=== PATIENT | male | born 1995 | race Caucasian/White ===

== ENCOUNTER 2017-07-21 11:46 | Emergency (ER) | payer BC ==
[~2017-07-21] VITALS: Ht 177.8 cm; Wt 80.0 kg
[2017-07-21 12:16] VITALS: BP 149/77
--- NOTE | 2017-07-21 12:25 | NUR ---
Patient ambulated to bed 08.
--- NOTE | 2017-07-21 13:07 | NUR ---
Note undone in EDM - 07/21/17 at 1312 by [facility] PATIENT PRESENTS TO ED WITH C/O DIZZINESS WITH FEVER OR >3 HRS WITHOUT EATING ;SEVERE NAUSEA X 2 WKS;DENIES POLYDIPSIA/POLYURIA/POLYPHAGIA, DENIES DIARRHEA--DENIES WEIGHT LOSS;PT FELL ONTO LEFT BUTTOCK C/O PAIN;DENIES ETOH ABUSE/ ADMITS ABUSING MARIJUANA DAILY;SKIN IS PINK/WARM/DRY; AAOX4 WITH EVEN AND STEADY GAIT; LUNGS CLEAR BL; HR EVEN AND REGULAR; PT DENIES ANY FEVER, CP, SOB, OR COUGH AT THIS TIME; PATIENT STATES PAIN OF 8/10 AT THIS TIME;PATIENT POSITIONED FOR COMFORT; HOB ELEVATED; BEDRAILS UP X2; BED DOWN. ER MD MADE AWARE OF PT STATUS.
--- NOTE | 2017-07-21 13:07 | NUR ---
PATIENT PRESENTS TO ED WITH C/O DIZZINESS WITH FEVER OR >3 HRS WITHOUT EATING ;SEVERE NAUSEA X 2 WKS;DENIES POLYDIPSIA/POLYURIA/POLYPHAGIA, DENIES DIARRHEA--DENIES WEIGHT LOSS;PT FELL ONTO LEFT BUTTOCK C/O PAIN;DENIES ETOH ABUSE/ ADMITS ABUSING MARIJUANA DAILY;SKIN IS PINK/WARM/DRY; AAOX4 WITH EVEN AND STEADY GAIT; LUNGS CLEAR BL; HR EVEN AND REGULAR; PT DENIES ANY CP, SOB, OR COUGH AT THIS TIME; PATIENT STATES PAIN OF 8/10 AT THIS TIME;PATIENT POSITIONED FOR COMFORT; HOB ELEVATED; BEDRAILS UP X2; BED DOWN. ER MD MADE AWARE OF PT STATUS.
--- NOTE | 2017-07-21 13:31 | NUR ---
DISPO AND MEDICAL DECISION MAKING, DC HOME WITH INSTRUCTIONS AND PRESCRIPTIONS, UNDERSTOOD BY PATIENT AND MOTHER WELL, VSWNL, DC HOME AMBULATORY.
[2017-07-21 13:32] VITALS: BP 133/68
== END 2017-07-21 13:32 | disposition home or self-care (01) ==
LOC: MED 11:46
DX: E16.2 Hypoglycemia, unspecified (principal); L03.317 Cellulitis of buttock
CPT/HCPCS: 82948; 99283